=== PATIENT | female | born 1990 | race Caucasian/White ===

== ENCOUNTER → 2020-11-13 | Outpatient (CLI) | payer OTHER ==
--- NOTE | 2020-11-13 14:37 | RAD ---
EXAMINATION: US BREAST RT CLINICAL HISTORY: Painful lump right breast x2 weeks TECHNIQUE: Targeted sonographic images obtained in the right breast and axilla. COMPARISON: None FINDINGS: At 2:00 position 3 cm from the nipple, there is a 2.6 x 1.8 x 1.4 cm multilobular predominantly anech oic mass with probable dependent fluid-debris level. The mass demonstrates posterior enhancement and no associated vascularity. This corresponds to the area of concern and likely represents a complicate d cyst. No suspicious findings in the right axilla. IMPRESSION: Benign-appearing cystic mass in the right upper-outer quadrant corresponding to area of concern. BI-RADS ASSESSMENT: Category 2: Benign RECOMMENDATION: Recommend clinical management. PQRS compliance statement - Patient information was entered into a reminder system with a target due date for the next mammogram. "Our facility is accredited by the [employer] Mamm[employer]." Electronically signed by: Heber Catalan DO (11/13/2020 2:34 PM) [id number]
== END ==
LOC: US 13:44
PROVIDERS: ATTEND Nurse Practitioner Family
DX: N63.11 Unspecified lump in the right breast, upper outer quadrant (principal)
CPT/HCPCS: 76641